=== PATIENT | female | born 1985 | race American Indian/Alaskan Native ===

== ENCOUNTER 2018-06-04 18:29 | Emergency (ER) | payer OTHER, BC ==
[2018-06-04 19:10] VITALS: BP 143/94
[2018-06-04] MEDS ORDERED: NORCO 5/325 PO ONE (20:20)
[2018-06-04] MEDS ORDERED: ZOFRAN ODT PO ONE (20:20)
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
[2018-06-04 21:43] LABS: Bilirubin,Urine NEG (Negative); Blood,Urine SM (Negative); Color,Urine Yellow (Yellow); Mucus,Urine FEW /HPF; Protein,Urine <15 mg/dL mg/dL (Negative); Urobilinogen,Urine < 2.0 mg/dL (<2.0)
[2018-06-04 22:09] LABS: HCG Qualitative,Urine Negative (Negative)
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
[2018-06-04] MEDS ORDERED: TORADOL IM ONE (23:04)
--- NOTE | 2018-06-04 23:13 | XRay Report ---
FINAL REPORT PROCEDURE: AP and lateral views right and left hands TECHNIQUE: Right and left hand radiographs, AP and lateral views. CPT 70119-GA, CPT 70970-[id number] HISTORY: dorsal bilateral hand pain COMPARISON: No prior studies are available for comparison. FINDINGS: Fracture (s) and/or Dislocation(s): None . Alignment: Normal . Joint space(s): Normal . Soft tissues: Normal . Bone mineralization: Normal . Foreign bodies: None . IMPRESSION: Negative examination.
--- NOTE | 2018-06-04 23:21 | XRay Report ---
FINAL REPORT PROCEDURE: XR SPINE CERVICAL 2-3V TECHNIQUE: Cervical spine radiographs, AP, lateral, and open-mouth odontoid views. CPT 71707 HISTORY: lower neck pain COMPARISON: No prior studies are available for comparison. FINDINGS: Prevertebral soft tissues: Normal . Alignment: Normal . Vertebral body heights/Disk spaces: Normal . Fracture(s): None . Facets: Normal . Bone mineralization: Normal . IMPRESSION: Negative examination
--- NOTE | 2018-06-04 23:23 | XRay Report ---
FINAL REPORT PROCEDURE: XR FINGER(S) 2+V LT TECHNIQUE: LEFT 3rd and 4th fingers finger radiographs, including AP, lateral, and oblique views. HISTORY: left 3RD-4TH digit pain COMPARISON: No prior studies are available for comparison. FINDINGS: Fracture (s) and/or Dislocation(s): None . Alignment: Normal. Joint space(s): Normal . Soft tissues: Normal . Bone mineralization: Normal . Foreign bodies: None . IMPRESSION: Negative examination
--- NOTE | 2018-06-04 23:26 | XRay Report ---
FINAL REPORT PROCEDURE: XR SPINE LUMBOSACRAL 2-3V TECHNIQUE: HISTORY: lower back pain COMPARISON: No prior studies are available for comparison. FINDINGS: No fracture or subluxation is visualized. Disc spaces are well maintained. Posterior elements are intact. Curvature of the upper lumbar spine is visualize with convexity to the left apex at L1. IMPRESSION: Thoracolumbar scoliosis partially visualized. No fracture or subluxation is seen. Disc spaces are well maintained. No other abnormalities are identified
== END 2018-06-04 23:55 | disposition home or self-care (01) ==
LOC: ED 18:29
DX: S62.254A Nondisplaced fracture of neck of first metacarpal bone, right hand, initial encounter for closed fracture (principal); G44.319 Acute post-traumatic headache, not intractable; M54.2 Cervicalgia; M54.5 Low back pain; M79.642 Pain in left hand; I10 Essential (primary) hypertension; V89.2XXA Person injured in unspecified motor-vehicle accident, traffic, initial encounter; Y93.89 Activity, other specified; Y92.89 Other specified places as the place of occurrence of the external cause; Y99.8 Other external cause status
CPT/HCPCS: 29125; 70450; 72040; 72100; 73120; 73140; 81001; 81025; 96372; 99285; J1885; Q0162